=== PATIENT | male | born 1965 | race Hispanic/Latino ===

== ENCOUNTER 2024-09-11 08:14 | Emergency (ER) | payer SELFPAY ==
[~2024-09-11] VITALS: Ht 172.7 cm; Wt 61.2 kg
[2024-09-11] MEDS ORDERED: TRAZ-185 PO (08:15)
--- NOTE | 2024-09-11 08:16 | ERN ---
General Chief Complaint: Anxiety/Panic Attack Stated Complaint: UNABLE TO SLEEP X 5 DAYS Time Seen by MD: 08:14 History of Present Illness Initial Comments Otherwise healthy 58 male presents for difficulty sleeping for the last five days. Patient reports he used to take [id number] sleep aids, but they have been causing some stomach upset. Reports he was having difficulty sleeping at night. He denies drug or alcohol abuse. He denies suicidal homicidal ideation or auditory hallucinations. He denies any psychiatric history. He was no pain. He was no other complaints. ROS Dictation CONSTITUTIONAL: No chills, no fever, no weakness, no diaphoresis, no malaise. HEAD/FACE: No signs of trauma. EENT: No eye pain, no blurred vision, no tearing, no double vision, no ear pain, no ear discharge, no nose pain, no nasal congestion, no throat pain, no throat swelling, no mouth pain. RESPIRATORY: No cough, no orthopnea, no SOB, no stridor, no wheezing. CARDIOVASCULAR: No chest pain, no edema, no palpitations, no syncope. GASTROINTESTINAL/ABDOMINAL: No abdominal pain, no constipation, no diarrhea, no nausea, no vomiting. GENITOURINARY: No abnormal discharge, no dysuria, no frequent urination, no hematuria. No complaints of pain in the genitals. MUSCULOSKELETAL: No back pain, no gout, no joint pain, no joint swelling, no muscle pain, no muscle stiffness, no neck pain. INTEGUMENTARY: No change in color, no change in hair/nails, no dryness, no lesion, no lumps, no rash. NEUROLOGICAL/PSYCH: Difficulty sleeping All Systems Negative, Except as Noted. Physical Exam Physical Exam Dictation VITAL SIGNS: Reviewed. GENERAL APPEARANCE: Alert, oriented x3, no acute distress. HEAD AND FACE: Non-traumatic. EYES: PERRL, pink conjunctivas, eyelid no trauma, anterior chamber clear. EARS: Pinnas intact and no signs of trauma or erythema. Ear canals clear and no discharge. TMs no erythema. NOSE: No discharge, no bleeding. OROPHARYNX: Mouth normal, teeth no caries, tongue pink. Pharynx clear, no erythema. Tonsils no exudates, no abscesses noted. Mucous membrane moist. NECK: Supple, non-tender, no thyromegaly, no masses, no JVD, no bruits. BREAST: Deferred. CHEST: No tenderness, no crepitus, no paradoxical movement, no retractions. LUNGS: Clear, well-ventilated, symmetric, no rales, no wheezing, no rhonchi, no stridor, good breath sounds bilaterally. HEART: Regular rate, regular rhythm, no murmur, no gallops. VASCULAR: No peripheral edema. ABDOMEN: Soft, positive bowel sounds, nondistended, no guarding, nontender, no rebound, no masses no hepatomegaly, no splenomegaly, no Dubon's sign, no hernias. RECTAL: Deferred. GENITAL: Deferred. NEUROLOGICAL: Normal speech, gross motor function intact, gross sensory func tion intact. MUSCULOSKELETAL: Neck nontender, full range of motion, back nontender, full range of motion. EXTREMITIES: Nontender, full range of motion. SKIN: Color pink, dry, no turgor, no rash, no lacerations, no abrasions, no contusions. LYMPHATICS: Deferred. MDM CC: Difficulty sleeping Historian: Patient Comorbidities: None Limitations by social determinants of health: Uninsured Differential diagnosis: Difficulty sleeping, until health disease, other. Vital signs stable Clinical exam is normal Plan: Prescription for trazodone recommend PCP follow up as needed. DX & DISP Disposition: Discharge Departure Impression: Primary Impression: Insomnia Condition: Stable Scripts Trazodone HCl (Trazodone HCl) 50 Mg Tablet 1 TAB PO HS for insomnia for 30 Days, #30 TAB 0 Refills Prov: ARIANE NEAL DO 09/11/24 Additional Instructions: I have prescribed the sleep and trazodone. Try to take this at night prior to sleep. Please follow up with the primary doctor. Referrals: SELF,REFERRAL (PCP) ARIANE NEAL DO Sep 11, 2024 08:15
[2024-09-11 08:32] VITALS: BP 114/73; PULSE 79; RESP 20; TEMP 97; O2SAT 98
== END 2024-09-11 08:44 | disposition home or self-care (01) ==
LOC: EDH 08:14
DX: G47.00 Insomnia, unspecified (principal)
CPT/HCPCS: 99283